=== PATIENT | female | born 1960 | race Caucasian/White ===

== ENCOUNTER 2024-06-03 22:50 | Emergency (ER) | payer OTHER ==
[2024-06-03 23:44] LABS: Absolute Basophils 0.1 K/uL (0-0.5); Absolute Eosinophils 0.3 K/uL (0-0.5); Absolute Lymphocytes (CBC) 2.7 K/uL (0.7-4.9); Absolute Monocytes 0.5 K/uL (0.1-1.3); Absolute Neutrophil 3.3 K/uL (1.8-8.0); Basophils % 0.8 % (0-1.3); Hemoglobin 14.7 g/dL (12.0-15.0); Lymphocytes % 39.6 % (15.3-44.8); MCH 30.2 pg (27.0-35.0); MCHC 34.9 g/dL (32.0-36.0); MCV 86.5 fL (80-100); MPV 8.1 fL (7.6-11.3); Neutrophils % 48.6 % (41.7-73.7); Nucleated Red Blood Cells % 0.1 % (0-0); Platelets 287 thou/uL (152-406); RBC Red Blood Cell Count 4.86 M/uL (3.86-4.86); Red Cell Distribution Width 12.3 % (12.1-15.2)
[2024-06-03 23:59] LABS: Specific Gravity 1.018 (1.005-1.030); Sqamous Epithelial <5 /HPF (None Seen); Urine Bacteria 20-50 /HPF (<20); Urine Bilirubin NEGATIVE (Negative); Urine Blood Negative (Negative); Urine Clarity Extremely Turbid (Clear); Urine Color Light-Yellow (Yellow); Urine Crystals Unidentified Few /HPF (None Seen); Urine Culture Reflex Order REFLEXED; Urine Glucose NEGATIVE (Negative); Urine Ketones NEGATIVE (Negative); Urine Microscopic Reflex YN ORDER UMIC; Urine Mucus Slight /HPF (None Seen); Urine Nitrite NEGATIVE (Negative); Urine Protein NEGATIVE (Negative); Urine RBC <5 /HPF (None Seen); Urine Urobilinogen Normal (Normal); Urine WBC >50 /HPF (<5); Urine WBC Clump Rare /HPF (None Seen); Urine pH 5.5 (5.0-7.0)
[2024-06-03 23:59] LABS: Albumin 3.8 g/dL (3.4-5.0); Albumin/Globulin Ratio 1.1 (1.1-1.8); Anion Gap 6.5 mEq/L (5.0-15.0); Bilirubin Total 0.4 mg/dL (0.2-1.0); Globulin 3.6 g/dL (2.3-3.5); Potassium 3.5 mEq/L (3.5-5.1); Protein, Total 7.4 g/dL (6.4-8.2)
[2024-06-04] MEDS ORDERED: CEFTRIAXONE 1000 MG/VIAL ONE (00:25)
[2024-06-04] MEDS ORDERED: LIDOCAINE 1% MPF 5 ML VIAL ONE (00:26)
--- NOTE | 2024-06-04 00:52 | RAD REPORT ---
TIME OF STUDY: 06/03/2024 11:10 PM GAS WELDING MACHINE OPERATOR REASON FOR EXAM: right upper abdomen pain COMPARISON: None. FINDINGS: AP view of the chest was obtained, chest 1 view. Lungs: Normal lung volume. No mass, or consolidation. Normal pulmonary vascularity.. Pleura: No pneumothorax. There is no pleural effusion. Heart and Mediastinum: Normal cardiomediastinal silhouette and great vessels.. The aorta is mildly atherosclerotic. Bones: No acute bony abnormality.. IMPRESSION: 1. No acute cardiopulmonary process. Electronically signed by: Tico Mistry MD 06/03/2024 11:53 PM GAS WELDING MACHINE OPERATOR Due to temporary technical issues with the PACS/24h00 reporting system, reports are being shon d by the in-house radiologist without review as a courtesy to ensure prompt reporting the interpreting radiologist is fully responsible for the content of the report. Transcribed Date/Time: 06/04/2024 12:52 AM
--- NOTE | 2024-06-04 01:39 | RAD REPORT ---
EXAM: CT Abdomen and Pelvis Without Intravenous Contrast CLINICAL HISTORY: The patient is 64 years old and is Female; ruq abdomen pain TECHNIQUE: Axial computed tomography images of the abdomen and pelvis without intravenous contrast. Sagittal and coronal reformatted images were created and reviewed. This CT exam was performed using one or more of the following dose reduction techniques: automated exposure control, adjustmen t of the mA and/or kV according to patient size, and/or use of iterative reconstruction technique. COMPARISON: No relevant prior studies available. FINDINGS: Lung bases: Unremarkable. No mass. No consolidation. ABDOMEN: Liver: Unremarkable. Gallbladder and bile ducts: Unremarkable. No calcified stones. No ductal dilation. Pancreas: Unremarkable. No ductal dilation. Spleen: Unremarkable. No splenomegaly. Adrenals: Unremarkable. No mass. Kidneys and ureters: Unremarkable. No obstructing stones. No hydronephrosis. Stomach and bowel: Unremarkable. No obstruction. No mucosal thickening. PELVIS: Appendix: No findings to suggest acute appendicitis. Bladder: There may be some diffuse bladder wall thickening, but the bladder is relatively nondist ended limiting evaluation. Reproductive: Unremarkable as visualized. ABDOMEN and PELVIS: Intraperitoneal space: Unremarkable. No free air. No significant fluid collection. Bones/joints: No acute fracture. No dislocation. Soft tissues: Unremarkable. Vasculature: Scattered atherosclerotic vascular calcifications. No abdominal aortic aneurysm. Lymph nodes: Unremarkable. No enlarged lymph nodes. IMPRESSION: No acute finding in the abdomen/pelvis. Electronically signed by: Pete Salas MD 06/04/2024 01:14 AM [facility] ([facility])[3] 8 Due to temporary technical issues with the PACS/Inverted Edge reporting system, reports are being shon d by the in-house radiologist without review as a courtesy to ensure prompt reporting the interpreting radiologist is fully responsible for the content of the report. Transcribed Date/Time: 06/04/2024 1:39 AM
--- NOTE | 2024-06-04 02:06 | ER ---
Nurse's Notes [facility] Name: Natividad Winters Age: 64 yrs Sex: Female : 1960 Arrival Date: 06/03/2024 Time: 22:50 Bed 18 Private MD: Diagnosis: Upper abdominal pain, unspecified;UTI/ Urinary tract infection, site not specified Presentation: 06/03 23:02 Chief complaint: Patient states: epigastric pain radiating to right back X1 month. lg3 denies N/V/D. Coronavirus screen: Client denies travel out of the [place] in the last 14 days. At this time, the client does not indicate any symptoms associated with coronavirus-19. Ebola Screen: No symptoms or risks identified at this time. Risk Assessment: Do you want to hurt yourself or someone else? Patient reports no desire to harm self or others. Onset of symptoms is unknown. 23:02 Method Of Arrival: Ambulatory lg3 23:02 Acuity: SANDRA 3 lg3 23:02 Initial Sepsis Screen: Does the patient meet any 2 criteria? No. Patient's initial br2 sepsis screen is negative. Does the patient have a suspected source of infection? No. Patient's initial sepsis screen is negative. Triage Assessment: 23:02 General: Appears in no apparent distress. uncomfortable, Behavior is calm, cooperative. lg3 Pain: Complains of pain in epigastric area Pain radiates to right subscapular area. EENT: No deficits noted. No signs and/or symptoms were reported regarding the EENT system. Neuro: No deficits noted. Smith Agitation-Sedation Scale (RASS): 0 - Alert and Calm Level of Consciousness is awake, alert, obeys commands, Oriented to person, place, time, situation. Cardiovascular: No deficits noted. Denies chest pain, shortness of breath, Capillary refill < 3 seconds Clubbing of nail beds is absent JVD is absent Patient's skin is warm and dry. Respiratory: No deficits noted. Airway is patent Respiratory effort is even, unlabored, Respiratory pattern is regular, symmetrical. GI: Abdomen is round non-distended, Reports upper abdominal pain, Patient currently denies diarrhea, nausea, vomiting. : No signs and/or symptoms were reported regarding the genitourinary system. Derm: No deficits noted. No signs and/or symptoms reported regarding the dermatologic system. Skin is intact, is healthy with good turgor, Skin is dry, Skin is normal, Skin temperature is warm. Musculoskeletal: No deficits noted. No signs and/or symptoms reported regarding the musculoskeletal system. Circulation, motion, and sensation intact. Range of motion: intact in all extremities. Historical: - Allergies: 23:02 No Known Allergies; lg3 - Home Meds: 23:02 monjauro [Active]; Lantus Sub-Q [Active]; Novolog Sub-Q [Active]; sertraline oral lg3 [Active]; Simvastatin Oral [Active]; - PMHx: 23:02 Anxiety; Diabetes mellitus; Hypercholesterolemia; lg3 - PSHx: 23:02 section; lg3 - Immunization history:: Adult Immunizations up to date. - Infectious Disease History:: Denies. - Social history:: Smoking status: Patient denies any tobacco usage or history of. Patient/guardian denies using alcohol, street drugs. Screenin:04 [facility] ED Fall Risk Assessment (Adult) History of falling in the last 3 months, br2 including since admission No falls in past 3 months (0 pts) Confusion or Disorientation No (0 pts) Intoxicated or Sedated No (0 pts) Impaired Gait No (0 pts) Mobility Assist Device Used No (0 pt) Altered Elimination No (0 pt) Score/Fall Risk Level 0 - 2 = Low Risk Oriented to surroundings. Abuse screen: Denies threats or abuse. Denies injuries from another. Nutritional screening: No deficits noted. Tuberculosis screening: No symptoms or risk factors identified. Assessment: 23:04 Reassessment: Patient and/or family updated on plan of care and expected duration. Pain br2 level reassessed. Patient is alert, oriented x 3, equal unlabored respirations, skin warm/dry/pink. General: Appears in no apparent distress. comfortable, Behavior is calm, cooperative. Pain: Complains of pain in xiphoid area Pain does not radiate. Pain currently is 7 out of 10 on a pain scale. GI: Reports epigastric pain. 06/04 01:35 Reassessment: Patient and/or family updated on plan of care and expected duration. Pain br2 level reassessed. Patient is alert, oriented x 3, equal unlabored respirations, skin warm/dry/pink. Patient states symptoms have improved. Vital Signs: 06/03 00:30 BP 134 / 67; Pulse 81; Resp 18; Pulse Ox 99% on R/A; br2 00:30 BP 119 / 40; Pulse 68; Resp 17; Temp 97.4(O); Pulse Ox 99% on R/A; br2 06/04 02:00 BP 119 / 40; Pulse 68; Resp 18 S; Pulse Ox 99% on R/A; br2 ED Course: 06/03 22:54 Patient arrived in ED. jj6 22:54 Irineo Reyes PA is PHCP. cp 22:55 Irineo Hunter MD is Attending Physician. cp 23:02 Triage completed. lg3 23:02 Arm band placed on right wrist. lg3 23:04 Maria G Phillip, GINNA is Primary Nurse. br2 23:04 Patient has correct armband on for positive identification. Placed in gown. Bed in low br2 position. Call light in reach. Side rails up X 1. Provided Education on: PLAN OF CARE. 23:15 Inserted saline lock: 20 gauge in right antecubital area, using aseptic technique. br2 ,using aseptic technique. PT DIDN'T WANT THE IV TO STAY IN PLACE, REQUESTED TO HAVE IT REMOVED. PT REQUESTING ORAL MEDS ONLY. PROVIDER NOTIFIED (SRINIVAS) Blood collected. Flushed with 10 mL NS. 23:30 CBC with Diff Sent. br2 23:30 CMP Sent. br2 23:30 Lipase Sent. br2 23:30 Urinalysis w/ reflexes Sent. br2 23:35 XRAY Chest (1 view) In Process Unspecified. EDMS 06/04 00:40 Abdomen In Process Unspecified. EDMS 02:15 No provider procedures requiring assistance completed. br2 02:16 Patient did not have IV access during this emergency room visit. PT DIDN'T WANT TO br2 LEAVE IV IN. Administered Medications: 06/03 23:30 Not Given (Patient Refused): ns 0.9% 500 ml 500 ml IV at 1 bolus once; to be given as a br2 bolus over 30 minutes 23:30 Not Given (Patient Refused): [id number] mg IVP once br2 06/04 00:14 Not Given (Patient Refused): rocephin1 grams IV at calculated rate once; Given slow IV br2 push per pharmacy instructions 00:38 Drug: Rocephin (cefTRIAXone) IM 1 grams IM once Route: IM; Site: right gluteus; br2 01:15 Follow up: Response: No adverse reaction br2 Medication: 06/03 23:04 VIS not applicable for this client. br2 Outcome: 06/04 02:05 Discharge ordered by . cp 02:15 Discharged to home ambulatory, br2 02:15 Condition: good 02:15 Discharge instructions given to patient, Instructed on discharge instructions, follow up and referral plans. medication usage, Demonstrated understanding of instructions, follow-up care, medications, Prescriptions given X 2, 02:17 Patient left the ED. br2 Addendum: 06/06/2024 09:58 Addendum: Culture Results: Positive urine culture. Bacteria is resistant to, has s s intermediate sensitivity, or is not tested against prescribed antibiotics. Report given to GERMAN for further evaluation and then to special assemblies supervisor for follow up with patient. Phone call Attempt #1 No answer, left VM. Pt called back shortly after. Dr. Alvarado recommends to return to ER for further treatment for ESBL in urine. Signatures: Dispatcher [employer] EDMS Terra Morales RN RN Irineo Griffin PA PA cp Able, Lacie, GINNA RN lg3 Marixa [id number] Maria G Phillip RN RN br2 Corrections: (The following items were deleted from the chart) 06/03 23:32 23:15 Inserted saline lock: 20 gauge in right antecubital area, using aseptic br2 technique. ,using aseptic technique. PT DIDN'T WANT THE IV TO STAY IN PLACE, REQUESTED TO HAVE IT REMOVED. PT REQUESTING ORAL MEDS ONLY. Blood collected. Flushed with 10 mL NS br2 06/04 02:15 01:34 BP 134 / 67; Pulse 81bpm; Resp 18bpm; Pulse Ox 99% RA; br2 br2
--- NOTE | 2024-06-04 02:06 | EDPHYS ---
Physician Documentation [facility] Name: Natividad Winters Age: 64 yrs Sex: Female : 1960 Arrival Date: 06/03/2024 Time: 22:50 Bed 18 Private MD: ED Physician Irineo Hunter HPI: 06/03 23:15 This 64 yrs old Female presents to ER via Ambulatory with complaints of Low Back Pain, cp Epigastric Pain, Abdominal Pain. 23:15 The patient presents with pain that is acute, with no known mechanism of injury, cp radiating pain from upper abdomen/epigastric area. 23:15 Onset: The symptoms/episode began/occurred intermittent for past 1 month, pain returned cp today. Associated signs and symptoms: Pertinent negatives: chest pain, constipation, fever, headache, hematuria, incontinence, numbness, vomiting, weakness. Historical: - Allergies: 23:02 No Known Allergies; lg3 - Home Meds: 23:02 monjauro [Active]; Lantus Sub-Q [Active]; Novolog Sub-Q [Active]; sertraline oral lg3 [Active]; Simvastatin Oral [Active]; - PMHx: 23:02 Anxiety; Diabetes mellitus; Hypercholesterolemia; lg3 - PSHx: 23:02 section; lg3 - Immunization history:: Adult Immunizations up to date. - Infectious Disease History:: Denies. - Social history:: Smoking status: Patient denies any tobacco usage or history of. Patient/guardian denies using alcohol, street drugs. ROS: 23:20 Constitutional: Negative for body aches, chills, fever, poor PO intake, cp 23:20 Eyes: Negative for injury, pain, redness, and discharge, cp 23:20 ENT: Negative for drainage from ear(s), ear pain, sore throat, difficulty swallowing, difficulty handling secretions, 23:20 Cardiovascular: Negative for chest pain, edema, palpitations, 23:20 Respiratory: Negative for cough, shortness of breath, wheezing, 23:20 Abdomen/GI: Positive for abdominal pain, of the epigastric area, Negative for vomiting, diarrhea, constipation, anorexia, 23:20 Back: Positive for radiated pain, Negative for injury or acute deformity, decreased range of motion, 23:20 : Negative for hematuria, difficulty urinating, 23:20 Neuro: Negative for altered mental status, dizziness, headache, weakness, 23:20 All other systems are negative, Exam: 23:25 Constitutional: The patient appears in no acute distress, alert, awake, cp non-diaphoretic, non-toxic, well developed, well nourished, 23:25 Head/Face: Normocephalic, atraumatic. cp 23:25 Eyes: Periorbital structures: appear normal, Conjunctiva: normal, no exudate, no injection, Sclera: no appreciated abnormality, Lids and lashes: appear normal, bilaterally, 23:25 ENT: External ear(s): are unremarkable, Nose: is normal, Mouth: Lips: moist, Oral mucosa: moist, Posterior pharynx: Airway: no evidence of obstruction, patent, 23:25 Chest/axilla: Inspection: normal, 23:25 Cardiovascular: Rate: normal, Rhythm: regular, Edema: is not appreciated, JVD: is not appreciated, 23:25 Respiratory: the patient does not display signs of respiratory distress, Respirations: normal, no use of accessory muscles, no retractions, labored breathing, is not present, Breath sounds: are clear throughout, no decreased breath sounds, no stridor, no wheezing, 23:25 Abdomen/GI: Inspection: abdomen appears normal, Bowel sounds: active, all quadrants, Palpation: soft, in all quadrants, mild abdominal tenderness, in the epigastric area and right upper quadrant, rebound tenderness, is not appreciated, involuntary guarding, is not appreciated, 23:25 Back: pain, that is mild, of the mid back area, ROM is normal, 23:25 Skin: no rash present. 23:25 Neuro: Orientation: to person, place \T\ time. Mentation: is normal, Motor: moves all fours, strength is normal, Sensation: is normal, Vital Signs: 00:30 BP 134 / 67; Pulse 81; Resp 18; Pulse Ox 99% on R/A; br2 00:30 BP 119 / 40; Pulse 68; Resp 17; Temp 97.4(O); Pulse Ox 99% on R/A; br2 06/04 02:00 BP 119 / 40; Pulse 68; Resp 18 S; Pulse Ox 99% on R/A; br2 MDM: 06/03 22:58 Medical Screening Exam initiated yifan 06/04 02:04 Data reviewed: vital signs, nurses notes, lab test result(s), radiologic studies, CT cp scan, and as a result, I will discharge patient. 02:04 Differential diagnosis: sciatica, Herniated disc UTI, pyelonephritis, cholecystitis. I cp considered the following discharge prescriptions or medication management in the emergency department Medications were administered in the Emergency Department. See MAR. Care significantly affected by the following chronic conditions: Diabetes. Counseling: I had a detailed discussion with the patient and/or guardian regarding the historical points, exam findings, and any diagnostic results supporting the discharge/admit diagnosis, lab results, radiology results, to return to the emergency department if symptoms worsen or persist or if there are any questions or concerns that arise at home. Response to treatment: the patient's symptoms have mildly improved after treatment, and as a result, I will discharge patient. Special discussion: Based on the patient's Hx, exam, and Dx evaluation, there is no indication for emergent surgery or inpatient Tx. It is understood by the patient/guardian that if the Sx's persist or worsen they need to return immediately for re-evaluation. 06/03 23:10 Order name: CBC with Diff; Complete Time: 00:06 06/03 23:10 Order name: CMP; Complete Time: 00:06 06/04 00:06 Interpretation: Normal except: GLUC 154; GLOB 3.6. 06/03 23:10 Order name: Lipase; Complete Time: 00:06 06/03 23:10 Order name: Urinalysis w/ reflexes; Complete Time: 00:06 06/04 00:07 Interpretation: Normal except: [facility] Extremely Turbid; UESTR 500; UWBC >50; UBACT 20-50. 06/04 00:03 Order name: Urine Culture [facility] 06/03 23:10 Order name: XRAY Chest (1 view) 06/04 01:57 Interpretation: Report review. 06/04 00:40 Order name: Abdomen [facility] 06/03 23:10 Order name: IV Saline Lock 06/03 23:10 Order name: Labs collected and sent; Complete Time: 23:30 cp Administered Medications: 06/03 23:30 Not Given (Patient Refused): ns 0.9% 500 ml 500 ml IV at 1 bolus once; to be given as a br2 bolus over 30 minutes 23:30 Not Given (Patient Refused): mg IVP once br2 06/04 00:14 Not Given (Patient Refused): rocephin1 grams IV at calculated rate once; Given slow IV br2 push per pharmacy instructions 00:38 Drug: Rocephin (cefTRIAXone) IM 1 grams IM once Route: IM; Site: right gluteus; br2 01:15 Follow up: Response: No adverse reaction br2 Disposition Summary: 06/04/24 02:05 Discharge Ordered Notes: Location: Home cp Problem: new cp Symptoms: have improved cp Condition: Stable cp Diagnosis - Upper abdominal pain, unspecified cp - UTI/ Urinary tract infection, site not specified cp Followup: cp - With: Private Physician - When: 2 - 3 days - Reason: Worsening of condition Discharge Instructions: - Discharge Summary Sheet cp - Abdominal Pain, Adult cp - Urinary Tract Infection, Adult cp Forms: - Medication Reconciliation Form cp - Antibiotic Education cp - Prescription Opioid Use cp - Patient Portal Instructions cp - Leadership Thank You Letter cp Prescriptions: - Ibuprofen 800 mg Oral Tablet - take 1 tablet ORAL route every 8 hours As needed take with food; 30 tablet; cp Refills: 0, Product Selection Permitted - cefpodoxime 200 mg Oral tablet - take 1 tablet ORAL route every 12 hours for 7 days with food; 14 tablet; cp Refills: 0, Product Selection Permitted Addendum: 06/06/2024 14:17 Co-signature as Attending Physician, Irineo Hunter MD I agree with the assessment and c palencia plan of care. Signatures: Dispatcher [employer] Irineo Damon MD MD cha Page, Corey, PA PA cp Able, Lacie, RN RN lg3 Maria G Phillip RN RN br2 Corrections: (The following items were deleted from the chart) 06/03 23:11 23:11 CBC+H.LAB.BRZ ordered. EDMS EDMS 23:11 23:11 COMPREHENSIVE METABOLIC PANEL+C.LAB.BRZ ordered. EDMS EDMS 23:11 23:11 LIPASE+C.LAB.BRZ ordered. EDMS EDMS 23:11 23:11 Urinalysis+U.LAB.BRZ ordered. EDMS EDMS 23:11 23:11 Abdomen Pelvis W Con+CT.RAD.BRZ ordered. EDMS EDMS 23:11 23:11 Chest Single View+RAD.RAD.BRZ ordered. EDMS EDMS
== END 2024-06-04 02:17 | disposition home or self-care (01) ==
LOC: ER 22:50
DX: N39.0 Urinary tract infection, site not specified (principal); E11.9 Type 2 diabetes mellitus without complications; Z79.4 Long term (current) use of insulin
CPT/HCPCS: 87088; 85025; 81001; 87086; 36415; 87077; 87186; 83690; 80053; 74176; 71045; 96372; 99284; J2003; J0696

== ENCOUNTER 2024-06-06 10:00 | Emergency (ER) | payer OTHER ==
[2024-06-06] MEDS ORDERED: Meropenem 1000 MG/VIAL IV ONE (10:28)
[2024-06-06] MEDS ORDERED: NA CHLORIDE 0.9% 100 ML ONE (10:28)
[2024-06-06] MEDS ORDERED: NA CHLORIDE 0.9% 1,000 ML ONE (10:28)
[2024-06-06 11:14] LABS: Absolute Basophils 0.1 K/uL (0-0.5); Absolute Eosinophils 0.1 K/uL (0-0.5); Absolute Lymphocytes (CBC) 1.5 K/uL (0.7-4.9); Absolute Monocytes 0.3 K/uL (0.1-1.3); Basophils % 0.8 % (0-1.3); Eosinophils % 1.4 % (0-4.4); Hematocrit 41.4 % (36.0-45.0); Hemoglobin 14.3 g/dL (12.0-15.0); Lymphocytes % 21.4 % (15.3-44.8); MCHC 34.6 g/dL (32.0-36.0); MCV 86.7 fL (80-100); MPV 8.1 fL (7.6-11.3); Monocytes % 4.3 % (3.3-12.3); Neutrophils % 72.1 % (41.7-73.7); Nucleated Red Blood Cells % 0.1 % (0-0); Platelets 265 thou/uL (152-406); RBC Red Blood Cell Count 4.78 M/uL (3.86-4.86); Red Cell Distribution Width 12.3 % (12.1-15.2)
[2024-06-06 11:23] LABS: PT Prothrombin Time 11.3 SECONDS (9.4-12.5); PTT, Activated Partial Thromb 31.3 SECONDS (24.3-36.9); Protime INR 1.08
[2024-06-06 11:29] LABS: Albumin 3.7 g/dL (3.4-5.0); Albumin/Globulin Ratio 1.1 (1.1-1.8); Anion Gap 8.1 mEq/L (5.0-15.0); Bilirubin Total 0.6 mg/dL (0.2-1.0); Globulin 3.3 g/dL (2.3-3.5); Potassium 4.1 mEq/L (3.5-5.1)
--- NOTE | 2024-06-06 12:07 | P.CNS ---
Date of Consult: 06/06/24 This is a 64 years old lady with no past medical history who presented to emergency room for persistent urinary symptom and low back pain. She visited emergency room 2 days ago with the same symptom and diagnosed with UTI and chronic low back pain after workup including CT of the abdomen and pelvis which revealed no abnormality and discharged home with ibuprofen and cefpodoxime. Today normal renal function, no leukocytosis, urine culture and sensitivity from 2 days reviewed, E. coli, ESBL but sensitive to nitrofurantoin and Augmentin. Okay to discharge with nitrofurantoin 100 mg twice daily for 5 days for uncomplicated acute cystitis, she needs to follow-up with her PCP for hyperglycemia
--- NOTE | 2024-06-06 12:50 | EDPHYS ---
Physician Documentation [facility] Name: Natividad Winters Age: 64 yrs Sex: Female : 1960 Arrival Date: 06/06/2024 Time: 10:00 Bed 4 Private MD: ED Physician Albert Alvarado HPI: 06/06 10:32 This 64 yrs old Female presents to ER via Ambulatory with complaints of IV TREATMENT. rt 10:32 Patient was seen in the ED about 2 days ago, was diagnosed with UTI, discharged on rt Vantin. Patient's blood cultures were back and ESBL E. coli. She states that the symptoms of suprapubic, right flank pain have worsened. Denies other acute complaints at this time, symptoms are moderate in severity, no other aggravating or alleviating factors.. Historical: - Allergies: 10:17 PENICILLINS; ss - PMHx: 10:17 Anxiety; diabetes mellitus; Hypercholesterolemia; ss - PSHx: 10:17 section; ss - Immunization history:: Client reports having NOT received the Covid vaccine. - Infectious Disease History:: Denies. - Social history:: Smoking status: Patient denies any tobacco usage or history of. - Family history:: not pertinent. ROS: 10:32 Constitutional: Negative for fever, chills, and weight loss, Cardiovascular: Negative rt for chest pain, palpitations, and edema, Respiratory: Negative for shortness of breath, cough, wheezing, and pleuritic chest pain, MS/Extremity: Negative for injury and deformity, 10:32 Abdomen/GI: Positive for abdominal pain, Negative for nausea and vomiting, 10:32 Back: Positive for flank pain, Negative for injury or acute deformity, Exam: 10:32 Constitutional: This is a well developed, well nourished patient who is awake, alert, rt and in no acute distress. Head/Face: Normocephalic, atraumatic. Chest/axilla: Normal chest wall appearance and motion. Nontender with no deformity. No lesions are appreciated. Cardiovascular: Regular rate and rhythm with a normal S1 and S2. No gallops, murmurs, or rubs. Normal PMI, no JVD. No pulse deficits. Respiratory: Lungs have equal breath sounds bilaterally, clear to auscultation and percussion. No rales, rhonchi or wheezes noted. No increased work of breathing, no retractions or nasal flaring. Abdomen/GI: Soft, non-tender, with normal bowel sounds. No distension or tympany. No guarding or rebound. No evidence of tenderness throughout. Skin: Warm, dry with normal turgor. Normal color with no rashes, no lesions, and no evidence of cellulitis. MS/ Extremity: Pulses equal, no cyanosis. Neurovascular intact. Full, normal range of motion. Neuro: Awake and alert, GCS 15, oriented to person, place, time, and situation. Cranial nerves II-XII grossly intact. Motor strength 5/5 in all extremities. Sensory grossly intact. Cerebellar exam normal. Normal gait. 10:32 ECG was reviewed by the Attending Physician. Vital Signs: 10:12 BP 160 / 76; Pulse 86; Resp 16; Temp 98(O); Pulse Ox 100% on R/A; Weight 63.5 kg; ss Height 5 ft. 3 in. ; Pain 3/10; 10:38 BP 136 / 71; Pulse 80; Resp 18; Pulse Ox 99% on R/A; ld1 12:00 BP 133 / 75; Pulse 65; Resp 15; Pulse Ox 98% ; cm10 13:00 BP 135 / 71; Pulse 74; Resp 15; Pulse Ox 97% ; cm10 10:12 Body Mass Index 24.80 (63.50 kg, 160.02 cm) ss 10:12 Pain Scale: Adult ss MDM: 10:13 Medical Screening Exam initiated rt 16:18 Differential Diagnosis UTI, ESBL. Data reviewed: vital signs, nurses notes, lab test rt result(s). Consideration of Admission/Observation Patient was admitted/placed on observation. Patient is found to have an ESBL E. coli sensitive to nitrofurantoin, Augmentin, meropenem with a note that says the preferred treatment would be IV meropenem. For this reason, I consulted hospitalist for admission. Hospitalist evaluated patient, declined to admit stating safe for discharge with nitrofurantoin. Will send patient home with strict return precautions.. I considered the following discharge prescriptions or medication management in the emergency department Medications were administered in the Emergency Department. See MAR. Test considered but Not performed: CT: Recent unremarkable CT scan, repeat is not needed. Care significantly affected by the following chronic conditions: Diabetes. Counseling: I had a detailed discussion with the patient and/or guardian regarding the historical points, exam findings, and any diagnostic results supporting the discharge/admit diagnosis, lab results, the need for outpatient follow up, to return to the emergency department if symptoms worsen or persist or if there are any questions or concerns that arise at home. Response to treatment: There is no appreciated change of the patient's symptoms at this time. 06/06 10:06 Order name: Blood Culture Adult (2) rt 06/06 10:06 Order name: CBC with Diff; Complete Time: 11:22 rt 06/06 10:06 Order name: CMP; Complete Time: 11:39 rt 06/06 10:06 Order name: Lactate w/ 2H reflex if indic.; Complete Time: :39 rt 06/06 10:06 Order name: Protime (+inr); Complete Time: 11:39 rt 06/06 10:06 Order name: Ptt, Activated; Complete Time: 11:39 rt 06/06 10:06 Order name: EKG; Complete Time: 10: rt 06/06 10:06 Order name: Accucheck; Complete Time: 10: rt 06/06 10:06 Order name: Cardiac monitoring; Complete Time: 10:34 rt 06/06 10:06 Order name: EKG - Nurse/Tech; Complete Time: 10: rt 06/06 10:06 Order name: IV Saline Lock - Large Bore; Complete Time: 11:00 rt 06/06 10:06 Order name: Labs collected and sent; Complete Time: 11:00 rt 06/06 10:06 Order name: O2 Per Protocol; Complete Time: 10:06/06 10:06 Order name: O2 Sat Monitoring; Complete Time: 10:06/06 10:06 Order name: Vital Signs; Complete Time: 10:34 rt EC:32 Rate is 83 beats/min. Rhythm is regular, Normal Sinus Rhythm with No ectopy. QRS Acker[place] rt is Normal. WI interval is normal. QRS interval is normal. QT interval is normal. No Q waves. T waves are Normal. No ST changes noted. Interpreted by me. Administered Medications: 10:59 Drug: Meropenem IV 1 grams IV at calculated rate once; (mix in NS 100 mL) Route: IV; ld1 Rate: calculated rate; Site: right antecubital; 11:30 Follow up: Response: No adverse reaction; IV Status: Completed infusion; IV Intake: cm10 100ml 10:59 Drug: NS 0.9% IV 1000 ml IV at 1000 ml once; to be given as a bolus over 60 minutes ld1 Route: IV; Rate: 1000 ml; Site: right antecubital; 13:51 Follow up: Response: No adverse reaction; IV Status: Completed infusion; IV Intake: cm10 1000ml Disposition Summary: 06/06/24 13:38 Discharge Ordered Notes: Location: Home(06/06/24 13:38) rt Problem: an ongoing problem(06/06/24 13:38) rt Symptoms: are unchanged(06/06/24 13:38) rt Condition: Stable(06/06/24 13:38) rt Diagnosis - UTI/ Urinary tract infection, site not specified rt Followup: rt - With: Private Physician - When: 2 - 3 days - Reason: Discharge Instructions: - Discharge Summary Sheet rt - Urinary Tract Infection, Adult rt Forms: - Medication Reconciliation Form rt - Antibiotic Education rt - Prescription Opioid Use rt - Patient Portal Instructions rt - Leadership Thank You Letter rt Prescriptions: - Macrobid 100 mg Oral Capsule - take 1 capsule ORAL route every 12 hours for 7 days; 14 capsule; Refills: 0, rt Product Selection Permitted Signatures: Dispatcher [employer] EDTerra Woo, RN RN Gayle Joiner RN RN ld1 Albert Alvarado MD MD rt Deya Ramsay RN cm10 Corrections: (The following items were deleted from the chart) 10:07 10:07 BLOOD CULTURE*+BA.LAB.BRZ ordered. EDNH EDMS 10:07 10:07 CBC+H.LAB.BRZ ordered. EDMS EDMS 10:07 10:07 COMPREHENSIVE METABOLIC PANEL+C.LAB.BRZ ordered. EDMS EDMS 10:07 10:07 LACTATE+C.LAB.BRZ ordered. ED[facility] EDMS 10:07 10:07 PROTIME (+INR)+COAG.LAB.BRZ ordered. ED[facility] EDMS 10:07 10:07 PTT, ACTIVATED+COAG.LAB.BRZ ordered. ED[facility] EDMS 13:38 12:50 Inpatient Admission rt rt 13:38 12:50 Jona Edwards-Ran rt rt 13:38 12:50 Telemetry/MedSurg (Inpatient) rt rt : 12:50 Stable rt rt : 12:50 new rt rt : 12:50 are unchanged rt rt : 12:50 Standard rt rt 12:50 rt rt : 12:50 ESBL urinary tract infection rt rt
--- NOTE | 2024-06-06 12:50 | ER ---
Nurse's Notes [facility] Name: Natividad Winters Age: 64 yrs Sex: Female : 1960 Arrival Date: 06/06/2024 Time: 10:00 Bed 4 Private MD: Diagnosis: UTI/ Urinary tract infection, site not specified Presentation: 06/06 10:12 Chief complaint: Patient states: called back to ER for treatment of ESBL in urine. ss Coronavirus screen: Client denies travel out of the [place] in the last 14 days. Ebola Screen: Patient denies exposure to infectious person. Patient denies travel to an Ebola-affected area in the 21 days before illness onset. Initial Sepsis Screen: Does the patient meet any 2 criteria? No. Patient's initial sepsis screen is negative. Does the patient have a suspected source of infection? No. Patient's initial sepsis screen is negative. Risk Assessment: Do you want to hurt yourself or someone else? Patient reports no desire to harm self or others. Onset of symptoms was May 2024. 10:12 Method Of Arrival: Ambulatory ss 10:12 Acuity: SANDRA 3 ss Historical: - Allergies: 10:17 PENICILLINS; ss - PMHx: 10:17 Anxiety; diabetes mellitus; Hypercholesterolemia; ss - PSHx: 10:17 section; ss - Immunization history:: Client reports having NOT received the Covid vaccine. - Infectious Disease History:: Denies. - Social history:: Smoking status: Patient denies any tobacco usage or history of. - Family history:: not pertinent. Screenin:34 [facility] ED Fall Risk Assessment (Adult) History of falling in the last 3 months, ld1 including since admission No falls in past 3 months (0 pts) Confusion or Disorientation No (0 pts) Intoxicated or Sedated No (0 pts) Impaired Gait No (0 pts) Mobility Assist Device Used No (0 pt) Altered Elimination No (0 pt) Score/Fall Risk Level 0 - 2 = Low Risk Oriented to surroundings, Maintained a safe environment, Educated pt \T\ family on fall prevention, incl call for assistance when getting out of bed, Assessed \T\ reinforced patient's understanding of fall precautions, Provided non-skid footwear, Hourly rounding (assess needs \T\ fall precautionary measures) done, Used ambulatory aids as needed (educated on \T\ assisted with), Used gait belt as appropriate. Abuse screen: Denies threats or abuse. Denies injuries from another. Nutritional screening: No deficits noted. Tuberculosis screening: No symptoms or risk factors identified. Assessment: 10:34 General: Appears in no apparent distress. comfortable, Behavior is calm, cooperative, ld1 appropriate for age. 10:34 Pain: Complains of pain in low back area Pain does not radiate. Pain currently is 8 out ld1 of 10 on a pain scale. Quality of pain is described as throbbing, Pain began suddenly, Is continuous. Neuro: Level of Consciousness is awake, alert, obeys commands, Oriented to person, place, time, situation. Cardiovascular: Capillary refill < 3 seconds Patient's skin is warm and dry. Respiratory: Airway is patent Respiratory effort is even, unlabored. GI: Abdomen is flat, non-distended. : Reports pain in bilateral flank(s). EENT: No signs and/or symptoms were reported regarding the EENT system. Derm: No signs and/or symptoms reported regarding the dermatologic system. Musculoskeletal: No signs and/or symptoms reported regarding the musculoskeletal system. 12:00 Reassessment: Patient appears in no apparent distress at this time. Patient and/or cm10 family updated on plan of care and expected duration. Pain level reassessed. Patient is alert, oriented x 3, equal unlabored respirations, skin warm/dry/pink. 13:00 Reassessment: Patient appears in no apparent distress at this time. Patient and/or cm10 family updated on plan of care and expected duration. Pain level reassessed. Patient is alert, oriented x 3, equal unlabored respirations, skin warm/dry/pink. Vital Signs: 10:12 BP 160 / 76; Pulse 86; Resp 16; Temp 98(O); Pulse Ox 100% on R/A; Weight 63.5 kg; ss Height 5 ft. 3 in. ; Pain 3/10; 10:38 BP 136 / 71; Pulse 80; Resp 18; Pulse Ox 99% on R/A; ld1 12:00 BP 133 / 75; Pulse 65; Resp 15; Pulse Ox 98% ; cm10 13:00 BP 135 / 71; Pulse 74; Resp 15; Pulse Ox 97% ; cm10 10:12 Body Mass Index 24.80 (63.50 kg, 160.02 cm) ss 10:12 Pain Scale: Adult ss ED Course: 10:03 Patient arrived in ED. sj2 10:04 Albert Alvarado MD is Attending Physician. rt 10:11 Gayle Joiner, GINNA is Primary Nurse. ld1 10:17 Triage completed. ss 10:17 Arm band placed on right wrist. ss 10:34 Patient has correct armband on for positive identification. Placed in gown. Bed in low ld1 position. Call light in reach. Side rails up X2. rn advanced on. Pulse ox on. NIBP on. Door closed. Noise minimized. Warm blanket given. 10:34 No provider procedures requiring assistance completed. ld1 10:50 Missed attempt(s): 22 gauge Bleeding controlled, band aid applied, catheter tip intact. ty Missed attempt(s): 20 gauge Bleeding controlled, band aid applied, catheter tip intact. 11:00 Blood Culture Adult (2) Sent. ld1 11:00 Lactate w/ 2H reflex if indic. Sent. ld1 11:00 Inserted saline lock: 22 gauge in right antecubital area, using aseptic technique. ld1 Blood collected. Flushed with 10 mL NS. 12:50 Josh Edwards is Hospitalizing Provider. rt 13:49 Provided Education on: Follow-up instructions.. cm10 13:49 IV discontinued, intact, bleeding controlled, No redness/swelling at site. Pressure cm10 dressing applied. Administered Medications: 10:59 Drug: Meropenem IV 1 grams IV at calculated rate once; (mix in NS 100 mL) Route: IV; ld1 Rate: calculated rate; Site: right antecubital; 11:30 Follow up: Response: No adverse reaction; IV Status: Completed infusion; IV Intake: cm10 100ml 10:59 Drug: NS 0.9% IV 1000 ml IV at 1000 ml once; to be given as a bolus over 60 minutes ld1 Route: IV; Rate: 1000 ml; Site: right antecubital; 13:51 Follow up: Response: No adverse reaction; IV Status: Completed infusion; IV Intake: cm10 1000ml Medication: 10:34 VIS not applicable for this client. ld1 Intake: 11:30 IV: 100ml; Total: 100ml. cm10 13:51 IV: 1000ml; Total: 1100ml. cm10 Outcome: 12:50 Decision to Hospitalize by Provider. rt 13:38 Discharge ordered by MD. rt 13:49 Discharged to home ambulatory, cm10 13:49 Condition: good 13:49 Discharge instructions given to patient, Instructed on discharge instructions, follow cm10 up and referral plans. medication usage, Demonstrated understanding of instructions, follow-up care, medications, Prescriptions given X 1, 13:51 Patient left the ED. cm10 Signatures: Terra Morales, RN RN Gayle Joiner RN RN ld1 Albert Alvarado MD MD rt Deya Ramsay RN RN cm10 Nathan Harry Sonceria 2
[2024-06-06 18:49] VITALS: TEMP 98
[2024-06-06 18:53] VITALS: BP 135/71; O2SAT 97
== END 2024-06-06 13:51 | disposition home or self-care (01) ==
LOC: ER 10:00
DX: N39.0 Urinary tract infection, site not specified (principal)
CPT/HCPCS: 96365; 96361; 87040 ×2; 85025; 36415; 85610; 83605; 85730; 80053; 99285; J2185; J7030